=== PATIENT | female | born 1965 | race African-American/Black ===

== ENCOUNTER 2019-12-14 07:48 | Observation (INO) ==
[2019-12-09 12:24] LABS: Calcium 9.5 MG/DL (8.5-10.1); Osmolality,Calculated 286.5 MOS/KG (273-304)
[2019-12-14] MEDS ORDERED: FAMOTIDINE 20 MG TABLET PO ONE (07:58)
[2019-12-14] MEDS ORDERED: DIAZEPAM 5 MG TABLET PO ONE (07:58)
[2019-12-14] MEDS ORDERED: LACTATED RINGERS 1,000 ML IV SCH (08:00)
[2019-12-14] MEDS ORDERED: FAMOTIDINE 20 MG TABLET ONE (08:16)
[2019-12-14] MEDS ORDERED: DIAZEPAM 5 MG TABLET ONE (08:16)
[2019-12-14] MEDS ORDERED: ceFAZolin 1,000 MG in SYRINGE 1 EACH IV ONE (08:37)
[2019-12-14] MEDS ORDERED: INSULIN REGULAR 100 UNIT/ML ONE (08:42)
[2019-12-14] MEDS ORDERED: INSULIN REGULAR 100 UNIT/ML IV STA (08:45)
[2019-12-14] MEDS ORDERED: BUPIVACAINE MPF 0.25% 30 ML VIAL ONE (08:45)
[2019-12-14] MEDS ORDERED: LIDOCAINE 1%/EPI INJ 20 ML VIAL ONE (08:45)
[2019-12-14] MEDS ORDERED: ceFAZolin 1,000 MG VIAL ONE (09:21)
[2019-12-14] MEDS ORDERED: MORPHINE 4 MG/1 ML VIAL IV PRN (10:43)
[2019-12-14] MEDS ORDERED: ONDANSETRON 4 MG/2 ML VIAL IV PRN (10:43)
[2019-12-14] MEDS ORDERED: LORazepam 1 MG TABLET PO PRN (10:44)
[2019-12-14] MEDS ORDERED: DEXTROSE 50% 25 GM/50 ML VIAL IV PRN (10:45)
[2019-12-14] MEDS ORDERED: GLUCAGON 1 MG VIAL IM PRN (10:45)
[2019-12-14] MEDS ORDERED: SEVOFLURANE 1 UNIT/15 MINUTE INH ONE (11:02)
[2019-12-14] MEDS ORDERED: propofoL 200 MG/20 ML VIAL IV ONE (11:02)
[2019-12-14] MEDS ORDERED: fentaNYL 100 MCG/2 ML VIAL ONE (11:02)
[2019-12-14] MEDS ORDERED: MIDAZOLAM 2 MG/2 ML VIAL ONE (11:02)
[2019-12-14] MEDS ORDERED: LIDOCAINE 2% 5 ML VIAL ONE (11:02)
[2019-12-14] MEDS ORDERED: SUCCINYLCHOLINE 200 MG/10 ML VIAL ONE (11:03)
[2019-12-14] MEDS ORDERED: NEOSTIGMINE 10 MG/10 ML VIAL ONE (11:03)
[2019-12-14] MEDS ORDERED: GLYCOPYRROLATE 0.4 MG/2 ML VIAL ONE (11:03)
[2019-12-14] MEDS ORDERED: DEXAMETHASONE 4 MG/1 ML VIAL ONE (11:03)
[2019-12-14] MEDS ORDERED: PHENYLEPHRINE 1 MG/10 ML SYRINGE IV ONE (11:03)
[2019-12-14] MEDS ORDERED: ROCURONIUM 100 MG/10 ML VIAL IV ONE (11:03)
[2019-12-14] MEDS: INSULIN REGULAR 100 UNIT/ML SUBCUT SCH ×3 (13:02→20:47)
[2019-12-14] MEDS: hydrOXYzine HCL 25 MG TABLET PO SCH (20:46)
[2019-12-14] MEDS: cloNIDine 0.1 MG TABLET PO SCH (20:46)
[2019-12-15 08:26] VITALS: BP 144/68
[2019-12-15] MEDS: INSULIN REGULAR 100 UNIT/ML SUBCUT SCH (08:47)
[2019-12-15] MEDS: cloNIDine 0.1 MG TABLET PO SCH (08:48)
[2019-12-15] MEDS: hydrOXYzine HCL 25 MG TABLET PO SCH (08:49)
[2019-12-15] MEDS ORDERED: ATORVASTATIN 10 MG TABLET PO SCH (09:00)
[2019-12-15] MEDS ORDERED: ASPIRIN CHEW 81 MG TABLET PO SCH (09:00)
[2019-12-15] MEDS ORDERED: PANTOPRAZOLE 40 MG TABLET PO SCH (09:00)
[2019-12-15] MEDS ORDERED: LOSARTAN 50 MG TABLET PO SCH (09:00)
[2019-12-15] MEDS ORDERED: amLODIPine 10 MG TABLET PO SCH (09:00)
== END 2019-12-15 11:15 | disposition home or self-care (01) ==
LOC: N.SDSINP 07:48 → N.OR 07:48 → N.SDSINP 07:49 → N.4E 11:37
PROVIDERS: ADMIT Surgery; ATTEND Surgery